=== PATIENT | male | born 1960 | race Caucasian/White ===

== ENCOUNTER 2017-01-14 18:53 | Emergency (ER) | payer OTHER ==
[~2017-01-14] VITALS: Ht 167.6 cm; Wt 96.4 kg
[~2017-01-14 18:53] MED LIST: ACET1TAB12 PO; ASPI-628 PO; ATRV10T PO; AZEL6DRO6 OP; CHOL10002 PO; FLUT16SP NS; LISI10TA2 PO; LORA10TA7 PO; METH750T3 PO; MULT-621 PO; NEOM10SO8 OT; OMEP40CA3 PO; SILD20TA14 PO
[2017-01-14 19:03] VITALS: BP 126/78; PULSE 52; RESP 16; O2SAT 99
[2017-01-14] MEDS ORDERED: Ondansetron 8 mg ODT Tablet ONE (19:07)
--- NOTE | 2017-01-14 21:08 | ED.REPORT ---
HPI-General Illness Date of Service Jan 14, 2017 ED Provider: Jimmie Serna MD A 56 year old male with a history of hypertension and traumatic industrial accident resulting in kidney injury presents to the ED complaining of dizziness. The pt was sleeping at 01:30 this morning when he woke and turned from his right side to his left. When this happened, he experienced sudden onset intense spinning dizziness. He was able to sleep briefly this morning and woke feeling lightheaded, followed by nausea and vomiting. The dizziness returned at 12:00 today and has persisted since. This is exacerbated by movement of his head and accompanied by continued nausea and vomiting. The pt has never experienced similar symptoms before. Nursing Notes Stated Complaint: SEVERE VERTIGO WITH VOMITING Chief Complaint: General Complaint Nursing Notes Reviewed: Yes Allergies: Coded Allergies: No Known Drug Allergies (Verified Allergy, Unknown, 10/18/14) Scheduled Acetaminophen/Codeine 300-30mg (Tylenol/Codeine #3) 1 Each Tablet 1 EACH PO Q6 Aspirin (Aspir 81) 81 Mg Tablet.dr 81 MG PO DAILY Atorvastatin (Lipitor) 10 Mg Tab 20 MG PO DAILY Azelastine HCl (Azelastine HCl) 6 Ml Drops 6 ML OP BID Cholecalciferol (Vitamin D3) 1,000 Unit Tablet 1,000 UNIT PO DAILY Fluticasone Propionate (Fluticasone Propionate Nasal) 16 Gm [place].susp 1 SPRAY NS BID Lisinopril (Lisinopril) 10 Mg Tablet 10 MG PO DAILY Loratadine (Loratadine) 10 Mg Tablet 10 MG PO DAILY Meclizine HCl (Travel-Ease) 25 Mg Tablet 25 MG PO TID Multivitamin with Minerals (Multiple Vitamin) 1 Each Tablet 1 EACH PO DAILY Neomycin/Polymyxin B Sulf/Hc (Klzpnyez-Vdazuyonx-Mc Ear Soln) 10 Ml Solution 4 DRP OT TID Omeprazole (Prilosec) 40 Mg Capsule.dr 40 MG PO DAILY Scheduled PRN Lorazepam (Lorazepam) 1 Mg Tablet 1 MG PO TID PRN PRN vertigo Methocarbamol (Methocarbamol) 750 Mg Tablet 750 MG PO QID PRN PRN For Spasm Ondansetron ODT (Ondansetron ODT) 8 Mg Tab.rapdis 8 MG PO QID PRN PRN For Nausea Miscellaneous Medications Sildenafil Citrate (Sildenafil) 20 Mg Tablet 20 MG PO General Time Seen by MD: 21:07 Chief Complaint Dizziness Hx Obtained From: Patient Arrived By: Walk-in Sudden in Onset?: Yes Onset Occurred: 17 - 20 hours ago Symptom Duration: Intermittent Recent Healthcare: No recent hospitalization, Recent doctor visit Similar Sx Previous: No Past Medical History Past Medical History hypertension asthma arthritis one kidney; traumatic from industrial injury Past Surgical History vertebral Smoking History Never Smoker Social History Alcohol Use: "Social" Other Social History: Good social support, Ambulatory Status Independent Review of Systems Full Review of Systems Respiratory: Denies: Non-productive cough, Shortness of breath Cardiovascular: Denies: Chest pain GI: Reports: Nausea, Vomiting, Denies: Abdominal pain Musculoskeletal: Denies: Back pain, Neck pain Skin: Denies Rash Neurologic: Reports: Dizziness, Lightheaded Complete sys rev & neg: except as marked. Physical Exam Vital Signs Vital Signs Date Time Temp Pulse Resp B/P Pulse Ox O2 Delivery O2 Flow Rate FiO2 01/15/17 00:07 37.2 61 16 131/82 99 Room Air 01/14/17 19:03 37.2 52 16 126/78 99 Room Air Initial VS: Reviewed General/Constitutional: Awake, Alert Head / Eyes: Atraumatic, Normocephalic, PERRL, EOMI nystagmus with minimal eye movement ENT: Atraumatic, Airway patent, Mucous membranes moist Neck: Atraumatic, Supple, Full range of motion Respiratory / Chest: Atraumatic, Breath sounds NL, Breath sounds = bilat, No respiratory distress Cardiovascular: Heart rate NL, Regular rhythm, Heart sounds NL Abdomen: Atraumatic, Soft, Non-tender Back: Atraumatic, Full range of motion Upper Extremities Upper Extremity / MS: Atraumatic, Full range of motion Wrist / Hand: Atraumatic, Full range of motion Lower Extremity / Pelvis / MS: Atraumatic, Full range of motion Skin: Color NL, No rash, Warm, Dry Neurologic: Oriented X3, Speech NL, No motor deficits, No sensory deficits, CN II - XII intact Psychiatric: Affect NL, Mood NL Re-Eval/Medical Decision Med Decision/Clinical Course 56-year-old fairly classic paroxysmal positional vertigo. No features of central vertigo at all. Onset and exacerbation by movement is classic. Neurologically intact otherwise. No indication for advanced imaging at this point. Detailed instructions regarding Parul maneuver given to patient and , who is a local family practitioner. Meclizine when necessary and then Ativan only if still having intractable dizziness. Source of Hx: Old records Time of Eval: 21:07 Patient Status: Condition improved Re-Evaluation/Progress Note: Pt informed of the diagnosis and plan for admission during the initial interview. The pt understands and agrees with the plan. All questions are addressed at this time. Counseled Regarding: Diagnosis, Need for follow-up, When/why to return to ED Discharge & Departure Primary Impression: Benign paroxysmal positional vertigo Laterality: unspecified laterality Qualified Code: H81.10 - Benign paroxysmal vertigo, unspecified ear Disposition: Home Discharge Condition All VS Reviewed: Yes Condition: Stable Patient Instructions: Benign Paroxysmal Positional Vertigo (ED) Additional Instructions: Refer to dizziness and balance handout. Meclizine three times daily if needed. Ativan if still uncontrolled after meclizine. Zofran under the tongue if needed for nausea. Follow-up with your doctor in the office. Go through the Parul maneuvers tonight and again tomorrow if needed. Often one cycle is sufficient. It can be repeated if symptoms recur at any point. Feel free to call tonight if you have any immediate questions or concerns. Referrals: Bhavna Bourne MD (PCP) Scribe Attestation Portions of this note were transcribed by Nona Pickens. I, Dr. Serna personally performed the history, physical exam and medical decision-making; I reviewed and confirmed the accuracy of the information in the transcribed note. copies to: Bhavna Bourne MD, Christopher W MD Jan 14, 2017 21:08 NONA PICKENS Jan 14, 2017 21:23
[2017-01-14] MEDS ORDERED: 0.9% Sodium Chloride 1,000 ML IV SCH (21:35)
[2017-01-14] MEDS ORDERED: Alum-Mag Hydrox-Simeth 30 mL Suspension PO ONE (22:45)
[2017-01-14] MEDS ORDERED: ONDA8TAB10 PO (23:40)
[2017-01-14] MEDS ORDERED: LORA1TAB PO (23:41)
[2017-01-14] MEDS ORDERED: [UNRECOGNIZED DRUG - CODE] PO (23:42)
[2017-01-14] MEDS ORDERED: _Ondansetron ODT 4 mg Tablet PO PRN (23:45)
[2017-01-15 00:07] VITALS: BP 131/82; PULSE 61; RESP 16; O2SAT 99
== END 2017-01-15 00:08 | disposition home or self-care (01) ==
LOC: SED 18:53
DX: H81.10 Benign paroxysmal vertigo, unspecified ear (principal); I10 Essential (primary) hypertension; Z79.82 Long term (current) use of aspirin
CPT/HCPCS: 96360; 99284; J7030